=== PATIENT | female | born 1940 | race Caucasian/White ===

== ENCOUNTER → 2017-06-21 | Outpatient (CLI) | payer MEDICARE ==
[2017-06-21 16:47] VITALS: BP 184/86; PULSE 78; RESP 16; TEMP 98; BMI 41.5
--- NOTE | 2017-07-16 14:43 | P.HPBAR ---
Bariatric H&P - History & Physicial H&P Date: 06/21/17 History & Physicial: Visit/CC: BAND ADJ Patient initial contact: Initial weight: 117.027 kg Initial weight in pounds: 258.00 Height: 5 ft 2 in Initial BMI: 47.2 Last weight: Current weight: 103.107 kg Current weight in pounds: 227.00 Current BMI: 41.5 [place] body weight (based on NIH guidelines): 49.895 kg Excess body weight loss: 20.9% The patient is a 77 year-old F who presents for Bariatric Assessment. the patient has had some GERD symptoms. She is requesting this fluid removed from her band. Past Medical History Past Medical History: Diabetes Mellitus, Hyperlipidemia, Hypertension, Thyroid Disorder Additional Past Medical History / Comment(s): overactive bladder, Type 2 DM History of Any Multi-Drug Resistant Organisms: None Reported Past Surgical History: Adenoidectomy, Bariatric Surgery, Section, Cholecystectomy, Tonsillectomy Additional Past Surgical History / Comment(s): Lap band (11/19/09), bilateral cataracts, x1, knee repair (can't remember right or left) Past Anesthesia/Blood Transfusion Reactions: No Reported Reaction Smoking Status: Never smoker Surgical - Exam Vital Signs Temp Pulse Resp BP 98.0 F 78 16 184/86 06/21/17 16:44 06/21/17 16:44 06/21/17 16:44 06/21/17 16:44 - General well developed, no distress - Eyes PERRL Bariatric Assessment & Plan Plan: Patient had 1 mL removed from her band. She currently has 6 mL in the band. She'll follow-up in 6 weeks. Bariatric Checklist Checklist: Plan: Checklist: EGD: 1. Hiatal hernia: 2. H. Pylori: HgbA1c: Vitamin D: Smoking: Never smoker Primary care physician referral: Psychiatry clearance: Cardiology clearance: Sleep study: Diet journal: VTE risk score: VTE risk level: Rehab needs at discharge:
== END | disposition home or self-care (01) ==
LOC: BARWHC3 13:11
PROVIDERS: ATTEND Surgery
DX: Z48.815 Encounter for surgical aftercare following surgery on the digestive system (principal); Z98.84 Bariatric surgery status
CPT/HCPCS: 99202

== ENCOUNTER → 2017-08-09 | Outpatient (CLI) | payer MEDICARE ==
[2017-08-09 13:32] VITALS: BP 171/91; PULSE 94; RESP 16; TEMP 97.8; BMI 42.6
--- NOTE | 2017-08-09 14:55 | P.HPBAR ---
Bariatric H&P - History & Physicial H&P Date: 08/09/17 History & Physicial: Visit/CC: Band follow-up Patient initial contact: Initial weight: 117.027 kg Initial weight in pounds: 258.00 Height: 5 ft 2 in Initial BMI: 47.2 Last weight: Current weight: 105.772 kg Current weight in pounds: 233.00 Current BMI: 42.6 [place] body weight (based on NIH guidelines): 49.895 kg Excess body weight loss: 16.8% The patient is a 77 year-old F who presents for Bariatric Assessment. The patient presents today for LAP-BAND follow-up. She states that she isn't a good zone. She denies any significant GERD. Her GERD is improved since her last visit. Past Medical History Past Medical History: Diabetes Mellitus, Hyperlipidemia, Hypertension, Thyroid Disorder Additional Past Medical History / Comment(s): overactive bladder, Type 2 DM History of Any Multi-Drug Resistant Organisms: None Reported Past Surgical History: Adenoidectomy, Bariatric Surgery, Section, Cholecystectomy, Tonsillectomy Additional Past Surgical History / Comment(s): Lap band (11/19/09), bilateral cataracts, x1, knee repair (can't remember right or left) Past Anesthesia/Blood Transfusion Reactions: No Reported Reaction Past Psychological History: No Psychological Hx Reported Smoking Status: Never smoker Past Alcohol Use History: Daily Additional Past Alcohol Use History / Comment(s): one cocktail plus one glass of wine each evening. Past Drug Use History: None Reported Surgical - Exam Vital Signs Temp Pulse Resp BP 97.8 F 94 16 171/91 08/09/17 13:30 08/09/17 13:30 08/09/17 13:30 08/09/17 13:30 - General well developed, no distress - Eyes PERRL - ENT normal pinna - Neck no masses - Abdomen Abdomen: soft, non tender Bariatric Assessment & Plan Plan: The patient's GERD symptoms are minimal and will be observed. She will follow- up in 8 weeks. Bariatric Checklist Checklist: Plan: Checklist: EGD: 1. Hiatal hernia: 2. H. Pylori: HgbA1c: Vitamin D: Smoking: Never smoker Primary care physician referral: Psychiatry clearance: Cardiology clearance: Sleep study: Diet journal: VTE risk score: VTE risk level: Rehab needs at discharge:
== END ==
LOC: BARWHC3 13:15
PROVIDERS: ATTEND Surgery
DX: Z48.815 Encounter for surgical aftercare following surgery on the digestive system (principal); Z98.84 Bariatric surgery status
CPT/HCPCS: 99211